=== PATIENT | female | born 1935 | race Caucasian/White ===

== ENCOUNTER 2022-06-01 12:57 | Emergency (ER) | payer OTHER ==
[~2022-06-01] VITALS: Ht 154.9 cm; Wt 71.2 kg
[~2022-06-01 12:57] MED LIST: NITR-85 PO
[2022-06-01 13:00] VITALS: BP_SYST 128
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
[2022-06-01 13:20] VITALS: BP_SYST 144
--- NOTE | 2022-06-01 14:10 | NUR ---
DR. BAXTER MET WITH AND ASSESSED PT.
--- NOTE | 2022-06-01 14:13 | NUR ---
PT TAKEN FOR XRAY OF SHOULDER AT THIS TIME.
--- NOTE | 2022-06-01 17:45 | NUR ---
DR. BAXTER AT BEDSIDE TO ASSESS PT.
--- NOTE | 2022-06-01 18:00 | NUR ---
Patient given written and verbal discharge instructions and verbalizes understanding. ER MD discussed with patient the results and treatment provided. Patient in stable condition. ID arm band removed. Patient educated on pain management and to follow up with PMD. Pain Scale 0/10. Opportunity for questions provided and answered. Medication side effect fact sheet provided.
[2022-06-01 18:05] VITALS: BP_SYST 132
== END 2022-06-01 18:05 | disposition home or self-care (01) ==
LOC: SED 12:57
DX: M25.512 Pain in left shoulder (principal); I10 Essential (primary) hypertension; Z88.0 Allergy status to penicillin; Z88.5 Allergy status to narcotic agent; Z79.899 Other long term (current) drug therapy
CPT/HCPCS: 73030; 99285